=== PATIENT | male | born 1960 | race African-American/Black ===

== ENCOUNTER → 2017-02-24 | Outpatient (CLI) | payer MEDICARE, OTHER ==
[~2017-02-24] MED LIST: ASPIRIN 81M81 MG/TA2 PO; COUMADIN 5MG5 MG/TAB PO; EC NAPROSYN500 MG; FLEXERIL 1010 MG/TAB; LAMICTAL 100MG100 MG PO; LAMICTAL CD5 MG PO; MULTIVITAMIN1 CTB PO; NEURONTIN100 MG/CAP PO; NEURONTIN800 MG/TAB PO; NORCO 325 MG-51 TAB PO; PREDNISONE20 MG PO; PRINIVIL2.5 MG PO; TYLENOL W/COD1 UDTAB; ULTRAM 50MG TAB50 MG; ZESTRIL 10MG10 MG PO
== END ==
LOC: COL.VAS 10:22
DX: I35.1 Nonrheumatic aortic (valve) insufficiency (principal); I20.9 Angina pectoris, unspecified; I10 Essential (primary) hypertension; E78.5 Hyperlipidemia, unspecified; G40.209 Localization-related (focal) (partial) symptomatic epilepsy and epileptic syndromes with complex partial seizures, not intractable, without status epilepticus

== ENCOUNTER → 2019-04-28 | Outpatient (CLI) | payer MEDICARE | LOC: COL.CARD 12:44 | DX: G40.909 Epilepsy, unspecified, not intractable, without status epilepticus (principal) ==